=== PATIENT | female | born 1960 | race Caucasian/White ===

== ENCOUNTER 2021-07-25 06:00 | Day surgery (SDC) | payer OTHER ==
[~2021-07-25] VITALS: Ht 175.3 cm; Wt 90.0 kg
[~2021-07-25 06:00] MED LIST: ALLEGRA ALLERG180 MG PO; ASPIRIN325 MG PO; CLARITIN10 MG PO; FAMOTIDINE40 MG PO; FLUTICASONE PRO16 GM NS; HYDROCODON-ACE1 EA11 PO; HYDROXYZINE HCL25 MG PO; LEVOTHYROXINE112 MC1 PO; LEVOTHYROXINE150 MCG PO; MIRALAX17 GM PO; NORCO 10-325 T1 EACH PO; OXYCODONE HCL5 MG PO; PROAIR HFA8.5 GM INH; SINGULAIR10 MG PO; XARELTO10 MG PO; ZYRTEC10 MG PO
--- NOTE | 2021-07-25 08:05 | NUR ---
07/25/21 0805 Radha Aaron 0759 PATIENT ARRIVES TO PACU UNRESPONSIVE TO PAIN. RESP EVEN AND UNLABORED, MASK AT 6 LITERS. 0804 PATIENT OPENS EYES WITH VERBAL STIMULI. RESP EVEN AND UNLABORED, MASK OFF.
--- NOTE | 2021-07-25 09:54 | OR ---
[facility] [address], [place] [address] Signed DATE OF OPERATION: 07/25/2021 SURGEON: Yudi Rg MD PREOPERATIVE DIAGNOSES: 1. Father with colonic polyps, age 72. 2. Brother with colonic polyps, age 61. 3. Personal history of hyperplastic polyps, diverticulosis and internal anal skin tags in 2008. 4. Personal history of tubular adenomatous polyps, hyperplastic polyps, diverticulosis and internal anal skin tags in 2015. 5. Tortuous distal sigmoid colon. POSTOPERATIVE DIAGNOSES: 1. Tortuous distal sigmoid colon. 2. Moderate sigmoid diverticulosis. 3. Multiple small internal anal skin tags. PROCEDURE: Colonoscopy without biopsy. ESTIMATED BLOOD LOSS: None. INDICATIONS: Roberto Carlos is a 61-year-old female, who returns for a followup colonoscopy. She has a family and personal history as listed above. We also know she has a very difficult tortuous distal sigmoid colon. It took an enormous amount of Versed and fentanyl to get through that area previously. Once we were through that area, the scope traveled nicely up to her cecum. Her colon is only about 80 cm in length total. Consequently, she required monitored anesthesia care on this occasion. Even then, she required additional doses of the propofol. Nevertheless, she did much better on this occasion than she did previously. In the office, I had met with her and reviewed the above findings. I had given her a pamphlet on colonoscopy. She remembers the test quite well. There is risk including, but not limited to gas bloating, crampy abdominal pain, bleeding, perforation requiring surgery, and missed diagnosis. She recalls the need for the monitored anesthesia care. She expressed understanding and wished to proceed. PROCEDURE NOTE: Roberto Carlos was taken into our endoscopy suite and placed in the left lateral decubitus Electronically Signed By: YUDI RG MD 07/25/21 0954 PATIENT NAME: ROBERTO CARLOS LOUIS OPERATIVE REPORT DATE OF : 58 REPORT #: [id number] PHYSICIAN: YUDI RG MD PCP: STEVE BLANCAS MD REPORT IS CONFIDENTIAL AND NOT TO BE RELEASED WITHOUT AUTHORIZATION [facility] [address], [place] [address] Signed position. She was given monitored anesthesia care with propofol per our nurse product support specialist. A digital rectal exam was performed and this was unremarkable except I could feel some small internal anal skin tags. She had good sphincter tone. The adult colonoscope was introduced and advanced up into the distal sigmoid colon. It is extremely torturous and the lumens are narrowed. It took some extra propofol and some extra time to get through that area. Once we got into the mid to proximal sigmoid colon, it started to open up and then it opened up even more as we came into the left colon. The scope then traveled nicely around into the cecum itself. We could easily see her appendiceal orifice and the ileocecal valve. Her colon is about 80 cm in length. Her prep was quite good. The scope was slowly withdrawn. We took pictures throughout for photodocumentation. On this occasion, we did not find any polyps in the colon or the rectum. Again, coming back through the distal sigmoid colon was quite tortuous. Her rectum is just long enough that we can retroflex the scope and see that she has multiple small internal anal skin tags. After this, the gas was suctioned out and colonoscope removed. Roberto Carlos tolerated the procedure much better on this occasion with her monitored anesthesia care. RECOMMENDATIONS: Roberto Carlos will follow up in 5 years for repeat colonoscopy again with monitored anesthesia care. Yudi Rg MD ALB/MODL /[id number] cc: MD Yudi Levy MD Copies: STEVE BLANCAS MD, ANDREW L MD ~ Electronically Signed By: YUDI RG MD 07/25/21 0954 PATIENT NAME: ROBERTO CARLOS LOUIS OPERATIVE REPORT DATE OF : 58 REPORT #: [id number] PHYSICIAN: YUDI RG MD PCP: STEVE BLANCAS MD REPORT IS CONFIDENTIAL AND NOT TO BE RELEASED WITHOUT AUTHORIZATION
--- NOTE | 2021-07-25 09:56 | NUR ---
PT ALERT, ORIENTED AND HERE FOR ROUTINE SCOPE. PT HAS HAD SCOPES PREVIOUS, ALL QUESTIONS ASKED WERE ANSWERED. HER COUSIN WILL PUBLIC SERVICES ASSISTANT FOLLOWING DC. PT STATED SHE WAS A LITTLE CHILLED, WILL GET WARM BLANKET FOR PT. PT REQUESTED PRAYER. WILL FOLLOW NEEDED
== END 2021-07-25 08:45 | disposition home or self-care (01) ==
LOC: DS 06:00 → OPS 06:00 → DS 07:00 → OPS 07:00 → DS 08:00 → OPS 08:45
PROVIDERS: ATTEND Colon & Rectal Surgery
PROC: 0DJD8ZZ Inspection of Lower Intestinal Tract, Via Natural or Artificial Opening Endoscopic (ICD-10-PCS; principal; 2021-07-25 07:00)
DX: K63.89 Other specified diseases of intestine (principal); K57.30 Diverticulosis of large intestine without perforation or abscess without bleeding; K64.4 Residual hemorrhoidal skin tags
CPT/HCPCS: J0690; J2704; J7121

== ENCOUNTER 2021-10-20 05:50 | Day surgery (SDC) | payer OTHER ==
--- NOTE | 2021-10-07 16:05 | NUR ---
DOS: 10/20/21 WALKER: HAS FWW AND WAS INSTRUCTED TO BRING WITH HER ON THE DAY OF SURGERY POLAR ZAINA: HAS ONE AND WAS INSTRUCTED TO BRING WITH HER ON THE DAY OF SURGERY STAIRS: INTO THE HOME 2 AT THE FRONT DOOR AND 1 AT THE BACK DOOR SHOWER: IT IS A STEP OVER AND DOES NOT HAVE A CHAIOR, BUT IF SHE NEEDS ONE [facility]. HAS A RISER FOR THE TOILET SHE HAS FREINDS AND FAMILY TO HELP HER GET AROUND TO APPOINTMENTS AND PHYSICAL THERAPY.
[~2021-10-20] VITALS: Ht 175.3 cm; Wt 88.2 kg
--- NOTE | 2021-10-20 08:27 | NUR ---
PT TAKEN TO OR-CONNECTED WITH FAMILY. COUSIN IS LEAVING AND ANOTHER WILL SOON BE COMING TO TAKE OVER CARE. WILL FOLLOW NEEDED
[2021-10-20] MEDS ORDERED: DICLOFENAC SODI75 MG PO (09:05)
[2021-10-20] MEDS ORDERED: OXYCODONE HCL5 MG PO (09:05)
[2021-10-20] MEDS ORDERED: GABAPENTIN600 MG PO (09:05)
[2021-10-20] MEDS ORDERED: XARELTO10 MG PO (09:05)
[2021-10-20] MEDS ORDERED: ACETAMINOPHEN500 MG PO (09:05)
[2021-10-20] MEDS ORDERED: SENNA LAX8.6 MG PO (09:06)
--- NOTE | 2021-10-20 09:23 | NUR ---
10/20/21 0923 Loida Sorenson 0900- PT ARRIVES TO PACU REACTIVE STIMULI. PT FALLS INSTANTLY BACK TO SLEEP. RESP EVEN AND UNLABORED. OXYGEN SAT HIGH 90'S TO 100% ON 6L VIA MASK. 0904- PT MORE AWAKE. PT IS REPORTING NO PAIN OR NAUSEA. PT IS ABLE TO MOVE HER FEET, UNABLE TO FEEL TOUCH THOUGH. 0916- OXYGEN TITRATED OFF. 0919- CRYOCUFF PLACED TO PT'S RIGHT HIP WITH PILLOW CASE IN BETWEEN SKIN AND CRYOCUFF.
--- NOTE | 2021-10-20 09:49 | NUR ---
PATIENT BACK TO ROOM FROM PACU ON RA. RECEIVED REPORT FROM BARRETT CUADRA. PATIENT IS AWAKE. RESP EVEN AND UNLABORED. DENIES PAIN AND NAUSEA. DRESSINGS ARE CLEAN, DRY, AND INTACT. CRYO CUFF IN PLACE. BED RAILS UP. PROVIDED PATIENT WITH WATER AND CRACKERS. CALL LIGHT WITHIN REACH.
--- NOTE | 2021-10-20 10:50 | NUR ---
PATIENT IS AWAKE AND LAYING IN BED. RESP EVEN AND UNLABORED. PATIENT RATES PAIN 2/10 WHEN MOVING, DENEIS NAUSEA. REPOSITIONED PATIENT IN BED WITH ANOTHER RN. DRESSING ON HIP HAS A SMALL AMOUNT OF SHADOWING AND DRESSING ON THIGH IS CLEAN, DRY, AND INTACT. CRYO CUFF IN PLACE. PATIENT TAKING SIPS OF WATER. DECLINES A SNACK AT THIS TIME. FAMILY MEMBER IN ROOM. CALL LIGHT WITHIN REACH.
--- NOTE | 2021-10-20 11:16 | OR ---
[facility] [address] [place], [place] [address] Signed DATE OF OPERATION: 10/20/2021 SURGEON: Gemma Silveira MD PREOPERATIVE DIAGNOSIS: Severe degenerative joint disease, right hip. POSTOPERATIVE DIAGNOSIS: Severe degenerative joint disease, right hip. PROCEDURE PERFORMED: Right total hip arthroplasty with Rodney. GRINDING WHEEL FACER: None. ANESTHESIA: Spinal. BLOOD LOSS: 175 mL. IMPLANTS: Dex Accolate II size 6 stem, 52 cup and a -5 head. BRIEF HISTORY: Krissy is a 61-year-old female with progressive worsening of osteoarthritis in her hip. She had undergone nonoperative treatment. She had undergone successful total knee. The risks and benefits of operative treatment were discussed with her and she elected to proceed. DESCRIPTION OF PROCEDURE: Once consent was obtained, she was taken to the operating room. After adequate anesthesia she was placed in the left lateral decubitus position on axillary roll. The leg was prepped and draped in a standard sterile fashion. The three pins for the Rodney computer ray were placed in the iliac crest in the posterior portion. The computer array was secured and registered with the computer. The approach was made to the hip in an anterior lateral fashion. This was taken through skin and subcutaneous tissue. ID band was divided longitudinally. The vastus lateralis was then split along the anterior femur from the tip of the trochanter distally and elevated in a subperiosteal manner Electronically Signed By: GEMMA SILVEIRA MD 10/20/21 1116 PATIENT NAME: KRISSY LOUIS OPERATIVE REPORT DATE OF : 58 REPORT #: [id number] PHYSICIAN: GEMMA SILVEIRA MD PCP: STEVE BLANCAS MD REPORT IS CONFIDENTIAL AND NOT TO BE RELEASED WITHOUT AUTHORIZATION [facility] [address] [place], [place] [address] Signed around the level of the lesser trochanter. The superior capsule and little bit of the gluteus medius were split anteriorly up to the acetabular rim. This was then peeled off the anterior femoral neck around to the previous resection. Once this was accomplished, the checkpoint was placed in the greater trochanter and the leg was registered with the computer. The femoral neck cut was then made one fingerbreadth above the lesser trochanter and the femoral head was removed. The periacetabular soft tissue including and abundant labrum were removed. The acetabulum was then registered with the computer. Once this was accomplished, the reamer was brought in on the robot and the acetabulum was reamed in 40 degrees of abduction and 20 degrees of anteversion. The acetabular cup was then impacted in the same alignment. The cup was quite stable. The liner was then impacted until it was well seated. Attention was turned to the proximal femur. Proximal femur was opened using the roderickPostRocket cutter followed by the Delaney awl. The lateralized reamer was then utilized. It was then sequentially broached from a 4 up to a 6 which was found to be quite well fitting. The showed a 5, the +6 was left in position. This, we tried to reduce with zero and that was too long and we went to -5. The leg lengths were found to be 2 mm longer than preop. This was found to be satisfactory. We then dislocated the hip and removed the trials. The final stem was impacted until it was well seated slightly deeper than it was before. The -5 head was then placed on the cleaned trunnion. It was secured. The hip was then reduced taken through range of motion. She had 120 degrees of flexion, about 30 of the internal external rotation. Her leg lengths again were found to be within 2 mm. The wound was copiously irrigated throughout the procedure. A total of 3 L normal saline with an IrriSept soak in the middle. The capsule was then closed using #2 Vicryl. The vastus and IT band layers were closed independently using #2 StrataFix, the subcutaneous layer with #0 StrataFix, and the skin with 3-0 StrataFix. Steri-Strips were applied to all wounds. The wounds were dressed with an Acticoat 7 dressing and she was awakened, taken to the recovery room in satisfactory condition. All sponge, needle, and instrument counts were correct. Gemma Silveira MD BA/MODL /[id number] Copies: Electronically Signed By: GEMMA SILVEIRA MD 10/20/21 1116 PATIENT NAME: KRISSY LOUIS OPERATIVE REPORT DATE OF : 58 REPORT #: [id number] PHYSICIAN: GEMMA SILVEIRA MD PCP: STEVE BLANCAS MD REPORT IS CONFIDENTIAL AND NOT TO BE RELEASED WITHOUT AUTHORIZATION [address] [address] Signed ~ Electronically Signed By: GEMMA SILVEIRA MD 10/20/21 1116 PATIENT NAME: KRISSY LOUIS OPERATIVE REPORT DATE OF : 58 REPORT #: [id number] PHYSICIAN: GEMMA SILVEIRA MD PCP: STEVE BLANCAS MD REPORT IS CONFIDENTIAL AND NOT TO BE RELEASED WITHOUT AUTHORIZATION
--- NOTE | 2021-10-20 12:00 | NUR ---
PT RESTING IN BED WITH LIGHTS DIMMED ON ARRIVAL. PT OPENS EYES WITH OPENING OF DOOR. VSS, PT DENIES ANY PAIN IN RIGHT HIP. CRYO CUFF IN PLACE IS NOT FUNCTIONING PROPERLY AND IS NOT COLD- THIS RN TROUBLESHOOTS MACHINE TO NO AVAIL. PRIMARY RN EMIL NOTIFIED. PT DENIES NAUSEA OR ANYTHING TO EAT AT THIS TIME STATES, "I ATE THE CRACKERS." WARM BLANKETS AND JUS HUGGER ON WARM, CALL LIGHT WITHIN REACH.
--- NOTE | 2021-10-20 12:31 | NUR ---
PATIENT RATES PAIN 3/10. PAIN MEDICATION GIVEN PER EMAR. LUNCH ORDER.
--- NOTE | 2021-10-20 12:44 | NUR ---
PATIENT AWAKE AND TALKING. RESP EVEN AND UNLABORED. RATES PAIN 3/10 AND DENIES NAUSEA. SMALL AMOUNIT OF SHADOWING ON HIP DRESSING AND THIGH DRESSING IS CLEAN, DRY, AND INTACT. CRYO CUFF IN PLACE. REPLACED CORD WITH THE ORIGINAL AND MACHINE IS GETTING COLDER. PATIENT EATING SOUP. FAMILY MEMBER IN ROOM. CALL LIGHT WITHIN REACH.
--- NOTE | 2021-10-20 14:38 | NUR ---
1410-PT IN WITH PATIENT. PATIENT UP TO THE COMMODE, UNABLE TO VOID. PATIENT WAS UNABLE TO WORK WITH PT AT THIS TIME. PT WILL BE BACK AROUND 1530. 1430-PATIENT LAYING IN BED AWAKE. RESP EVEN AND UNLABORED. RATES PAIN 0/10 WHEN LAYING DOWN AND A 5/10 WHEN UP. DENIES NAUSEA AND DIZZINESS. BOTH DRESSINGS HAVE A SMALL AMOUNT OF DRAINAGE. CRYO CUFF IN PLACE AND WORKING APPROPRIATELY. PATIENT USING JUS HUGGER. CALL LIGHT WITHIN REACH.
--- NOTE | 2021-10-20 15:30 | NUR ---
1530-PATIENT REPORTS NAUSEA. CRACKERS PROVDIED PER PATIENT REQUEST. 1535-PT IN PATIENT ROOM. 1550-PHONE CALL TO DR. PLUMMER. VO GIVEN FOR ZOFRAN ODT 8MG. 1558- ZOFRAN GIVEN TO PATIENT. PATIENT WAS UNABLE TO PASS PT AT THIS POINT. 1600-PATIENT SITTING ON BEDSIDE COMMODE. PATIENT WAS ABLE TO VOID 375ML. 1613-PATIENT BACK TO BED. RATES PAIN 0/10 WHEN LAYING DOWN AND 3/10 WHEN UP. BOTH DRESSINGS HAVE SMALL AMOUNT OF RED DRAINAGE. CRYO CUFF IN PLACE. CALL LIGHT WITHIN REACH. FAMILY IN ROOM. JUS HUGGER BEING USED.
--- NOTE | 2021-10-20 17:00 | NUR ---
PATIENT TO PT.
--- NOTE | 2021-10-20 17:30 | NUR ---
1730-PATIENT BACK TO ROOM FROM PT. PATIENT PASSED PT. 1735-PATIENT SITTING AT THE SIDE OF THE BED. PATIENT IS READY TO GO HOME. PAIN IS WELL CONTROLLED. BOTH. DRESSING WITH A SMALL AMOUNT OF RED DRAINAGE. 1740-RN AND FAMILY MEMBER HELPED PATEINT GET DRESSED. 1750-PROVIDED PATIENT AND FAMILY MEMBER WITH DISCHARGE INSTRUCTIONS. QUESTION ABOUT MEDICATIONS, PAIN CONTROL, CONSTIPATION, AND HOME CARE DISCUSSED AT LENGTH. PATIENT AMBULATES TO WHEELCHAIR. RIDE PROVIDED TO FRONT OF HOSPITAL WHERE HER FAMILY MEMBER WAS WAITING.
== END 2021-10-20 17:50 | disposition home or self-care (01) ==
LOC: DS 05:50
PROVIDERS: ATTEND Specialist
PROC: 0SR90JA Replacement of Right Hip Joint with Synthetic Substitute, Uncemented, Open Approach (ICD-10-PCS; principal; 2021-10-20 07:30)
DX: M16.11 Unilateral primary osteoarthritis, right hip (principal)
CPT/HCPCS: 01214; 72170; 97110; 97116; 97161; A9270; C1713; C1776; J0690; J1885; J2001; J2250; J2704; J7040; J7121